=== PATIENT | male | born 1950 | race Caucasian/White ===

== ENCOUNTER 2017-08-17 09:39 | Day surgery (SDC) | payer MEDICARE ==
[~2017-08-17] VITALS: Ht 167.6 cm; Wt 83.5 kg
[~2017-08-17 09:39] MED LIST: ALBU17IN INH; ASPI81TA85 PO; ATOR40TA75 PO; CIPR-249 PO; GABA600T PO; NORT10CA2 PO; OMEP20TA PO; PERC5TAB12 PO; SALMDISK INH; TIOT18INH INH; TRAM50TA2 PO
[2017-08-17] MEDS ORDERED: LR 1,000 ML IV ONE (09:45)
[2017-08-17] MEDS ORDERED: GENTAMICIN 100 MG in APPROPRIATE DILUENT 1 EA IV ONE (09:45)
[2017-08-17] MEDS ORDERED: VANCOMYCIN HCL 1,000 MG, VIAL MATE ADAPTER 1 EACH in D5W 250 ML IV ONE (09:45)
[2017-08-17] MEDS ORDERED: MIDAZOLAM INJ 2 MG/2 ML VIAL (J2250) As Ordered ONE (11:56)
[2017-08-17] MEDS ORDERED: ONDANSETRON 4MG/2ML VIAL (J2405) As Ordered ONE (11:56)
[2017-08-17] MEDS ORDERED: LIDOCAINE 2% INJ 100 MG/5 ML SDV (FOR ANES.) As Ordered ONE (11:56)
[2017-08-17] MEDS ORDERED: PROPOFOL 200 MG/20 ML VIAL As Ordered ONE ×2 (11:56→13:07)
[2017-08-17] MEDS ORDERED: dexameTHASONE 4 MG/ML 1ML VIAL (J1100) As Ordered ONE (11:56)
[2017-08-17] MEDS ORDERED: KETOROLAC 60 MG/2 ML VIAL (J1885) As Ordered ONE (11:56)
[2017-08-17] MEDS ORDERED: fentaNYL 250 MCG/5 ML INJECTION (J3010) As Ordered ONE (11:56)
[2017-08-17] MEDS ORDERED: BACTRIM IV 160MG-800MG/10ML VIAL (S0039) XX ONE (12:00)
[2017-08-17] MEDS ORDERED: ePHEDrine SULFATE 25 MG/5 ML(5MG/ML) SYRINGE As Ordered ONE (12:41)
[2017-08-17] MEDS ORDERED: TYLE650T35 PO (13:23)
[2017-08-17] MEDS ORDERED: BACT800T5 PO (13:23)
[2017-08-17] MEDS ORDERED: LR 1,000 ML IV SCH (14:00)
[2017-08-17] MEDS ORDERED: NORCO, ANEXSIA 5/325MG TABLET (HYDROcodone/ACETAMINOPHEN) PO PRN (14:00)
[2017-08-17] MEDS ORDERED: ONDANSETRON 4MG/2ML VIAL (J2405) IV PRN (14:00)
[2017-08-17] MEDS ORDERED: ACETAMINOPHEN 650MG ER TAB (TYLENOL ARTHRITIS) PO PRN (14:00)
[2017-08-17] MEDS ORDERED: fentaNYL 100 MCG/2 ML INJECTION (J3010) IV PRN (14:00)
[2017-08-17 15:45] VITALS: BP 167/78
[2017-08-17] MEDS ORDERED: BACTRIM 160MG/800MG DS TAB PO SCH (21:00)
--- NOTE | 2017-08-18 07:41 | RO ---
DATE OF PROCEDURE: 08/17/2017 PREPROCEDURE DIAGNOSIS: Erectile dysfunction. POSTPROCEDURE DIAGNOSIS: Erectile dysfunction. PROCEDURE: Placement of inflatable penile implant, Titan 18 cm in length x 2 cm rear tip bilaterally with a 75 [place] reservoir. SURGEON: Dr. Ion Velez. TELEVISION ANALYZER: None. ANESTHESIA: General. ESTIMATED BLOOD LOSS: 25 mL. COMPLICATIONS: None. HISTORY OF PRESENT ILLNESS: 66-year-old male patient with severe erectile dysfunction. The patient has failed Trimix injection and PD5 inhibitors. For this reason, he has consented for placement of inflatable penile implant Titan Coloplast. DESCRIPTION OF PROCEDURE: With the patient under general anesthesia in supine position, after prepped and draping the area of the concern which included the entire genitalia and abdomen, we started by introducing a #16-Portuguese Deleon catheter and inflated the balloon to 10 mL to drain the bladder. We then performed an incision with a 15-blade bisturi in the penile-scrotal area in the mid elbert for about 4 cm in length. Through this incision, with electro bovie cautery, we opened it up to the tunica albuginea of the right corpora and the corpora. We then placed two #2-0 Vicryl stitches with an SH needle parallel to each other on the right corpora and also on the left corpora. We cut in the middle for about 2 cm in length in the right corpora and left corpora opening the corpora bodies. We then proceeded to ligate proximally and distally on both corpora and the proceeded to measure the corporal bodies with the Mayra. We measured on the right 20 cm, on the left side 20 cm. For this reason, we selected to place an 18 cm plus 2 cm rear tip on both side of the inflatable penile implant Coloplast Titan. With the help of the Mayra, we placed the implant through the distal shaft and then proximally we implant the penile prosthesis. We then proceeded to dissect through the external inguinal ring. With finding dissection we landed into the Retzius space and placed the [place] reservoir. We inflated the [place] reservoir for 60 mL and left 15 mL in the penile implant. We then connected the tubing and then placed the pump in the scrotal sac. We then tested the penile implant back and forth inflating and deflating it without any problems. We then proceeded to close the incision in two layers with a Vicryl #2-0 in a running fashion and then the skin with a #3-0 Monocryl in a running fashion. We placed bacitracin cream and we placed a mummy wrap with Kerlix roll around the penis. We took the stitches connected to the penis at the end and took the Deleon catheter. PLAN: The patient will pass though recovery. He will be discharged home with Bactrim for at least 3 weeks and Tylenol for pain. There were no complications during surgery. MAXIMINO
== END 2017-08-17 15:50 | disposition home or self-care (01) ==
LOC: M SDC 09:39
PROVIDERS: ATTEND Urology
DX: N52.9 Male erectile dysfunction, unspecified (principal); J44.9 Chronic obstructive pulmonary disease, unspecified; K21.9 Gastro-esophageal reflux disease without esophagitis; F41.9 Anxiety disorder, unspecified; M12.9 Arthropathy, unspecified; R06.83 Snoring; E78.2 Mixed hyperlipidemia; M51.36 Other intervertebral disc degeneration, lumbar region; Z79.899 Other long term (current) drug therapy; Z79.82 Long term (current) use of aspirin; Z87.891 Personal history of nicotine dependence; Z85.46 Personal history of malignant neoplasm of prostate
CPT/HCPCS: 36415; 54401; 84153; 86850; 86900; 86901; C1813; C1815; C2622; J1100; J1580; J1885; J2250; J2405; J3010; J3370

== ENCOUNTER → 2019-09-03 | Outpatient (REF) ==
[~2019-09-03] MED LIST changes: +BACT800T5 PO; -GABA600T PO; +GABA600T4 PO; +OMEP-358 PO; -OMEP20TA PO; +TYLE650T35 PO
== END ==
LOC: M LAB LCGH 19:40
PROVIDERS: ATTEND Surgery
DX: Z86.010 Personal history of colon polyps (principal)

== ENCOUNTER → 2021-08-17 | Outpatient (CLI) | payer MEDICARE ==
[~2021-08-17] MED LIST changes: +ACET650T61 PO; +ANOR1AER INH; -ASPI81TA85 PO; +ASPI81TA86 PO; +OMEP-218 PO; -TYLE650T35 PO
== END ==
LOC: M LABSMTC 09:31
PROVIDERS: ATTEND Anesthesiology
DX: Z01.812 Encounter for preprocedural laboratory examination (principal); Z20.822 Contact with and (suspected) exposure to COVID-19

== ENCOUNTER 2021-08-21 08:48 | Day surgery (SDC) | payer MEDICARE ==
[~2021-08-21] VITALS: Ht 167.6 cm; Wt 85.7 kg
[~2021-08-21 08:48] MED LIST changes: +NS 1,000 ML IV ONE; +OMEP-173 PO; -OMEP-218 PO
[2021-08-21] MEDS ORDERED: propofoL 200 MG/20 ML VIAL As Ordered ONE (09:24)
[2021-08-21] MEDS ORDERED: fentaNYL 100 MCG/2 ML INJECTION As Ordered ONE (09:24)
[2021-08-21] MEDS ORDERED: LIDOCAINE 2% 100MG/5ML SDV (FOR ANES.) As Ordered ONE (09:24)
[2021-08-21] MEDS ORDERED: ALBUTEROL SULFATE 2.5 MG/0.5 ML INH NEB SOLN INH ONE (10:00)
[2021-08-21 11:38] VITALS: BP 165/74
== END 2021-08-21 11:45 | disposition home or self-care (01) ==
LOC: M SDC 08:48
PROVIDERS: ATTEND Internal Medicine Gastroenterology
DX: K22.2 Esophageal obstruction (principal); R13.10 Dysphagia, unspecified; K29.70 Gastritis, unspecified, without bleeding; E78.5 Hyperlipidemia, unspecified; K21.9 Gastro-esophageal reflux disease without esophagitis; J44.9 Chronic obstructive pulmonary disease, unspecified; Z87.891 Personal history of nicotine dependence; Z79.899 Other long term (current) drug therapy
CPT/HCPCS: 43239; 43249; 88305; J3010